=== PATIENT | female | born 1995 | race Two or more races ===

== ENCOUNTER 2019-06-14 20:16 | Emergency (ER) | payer MEDICAID ==
[~2019-06-14] VITALS: Ht 165.1 cm; Wt 81.0 kg
[~2019-06-14 20:16] MED LIST: DOCU-131 PO; IBUP-1222 PO
[2019-06-14 23:25] LABS: BASOPHILS # (AUTO) 0.02 x10^3/uL (0-0.1); BASOPHILS % (AUTO) 0 % (0-1); EOSINOPHILS # (AUTO) 0.09 x10^3/uL (0-0.4); EOSINOPHILS % (AUTO) 1 % (1-7); LYMPHOCYTES # (AUTO) 2.25 x10^3/uL (1-3.4); LYMPHOCYTES % (AUTO) 30 % (22-44); MD NO; MEAN CORPUSCULAR HEMOGLOBIN 30.6 pg (27.0-34.8); MEAN CORPUSCULAR HGB CONC 33.4 g/dL (32.4-35.8); MEAN CORPUSCULAR VOLUME 91.8 fL (80-100); MEAN PLATELET VOLUME 7.8 fL (7.4-10.4); MONOCYTES % (AUTO) 7 % (2-9); NEUTROPHILS # (AUTO) 4.71 x10^3/uL (1.8-6.8); NEUTROPHILS % (AUTO) 62 % (42-75); PLATELET COUNT 335 x10^3/uL (130-400); RED BLOOD COUNT 4.07 x10^6/uL (3.82-5.3); RED CELL DISTRIBUTION WIDTH 13.7 % (9.6-15.2)
[2019-06-14] MEDS ORDERED: DIPHENHYDRAMINE 50 MG/ML, 1ML IM ONE (23:30)
[2019-06-14 23:37] LABS: ALANINE AMINOTRANSFERASE 22 U/L (12-78); ALBUMIN 3.7 g/dL (3.4-5.0); ANION GAP 4 mmol/L (5-15); CALCIUM 9.1 mg/dL (8.5-10.1); CHLORIDE 108 mmol/L (98-107); CREATININE 0.76 mg/dL (0.55-1.02)
[2019-06-14 23:41] LABS: ALKALINE PHOSPHATASE 59 U/L (45-117); BILIRUBIN,TOTAL 0.3 mg/dL (0.2-1.0); TOTAL PROTEIN 7.5 g/dL (6.4-8.2)
--- NOTE | 2019-06-14 23:45 | NUR ---
PT AMBULATED TO RESTROOM WITH STEADY GAIT TO PROVIDE URINE SAMPLE. UA COLLECTED AND SENT TO LAB. PT NOW SLEEPING ON [facility]. TASNEEM.
--- NOTE | 2019-06-15 | NUR ---
REPORT GIVEN TO MARKUS ECHAVARRIA
[2019-06-15 00:01] LABS: CULTURE INDICATED? YES; MICROSCOPIC INDICATED
[2019-06-15] MEDS ORDERED: DIPHENHYDRAMINE 50 MG CAPSULE ONE (00:34)
[2019-06-15] MEDS ORDERED: CEFDINIR 300 MG CAPSULE PO ONE (01:00)
[2019-06-15] MEDS ORDERED: CEFDINIR 300 MG CAPSULE ONE (01:05)
[2019-06-15 01:54] VITALS: BP 120/74
== END 2019-06-15 01:56 | disposition home or self-care (01) ==
LOC: ED 06-15 01:45
DX: N30.01 Acute cystitis with hematuria (principal); R42 Dizziness and giddiness; F17.210 Nicotine dependence, cigarettes, uncomplicated
CPT/HCPCS: 36415; 71046; 80053; 80307; 81001; 84703; 85025; 87086; 93005; 96372; 99285; J1200